=== PATIENT | female | born 1985 | race Caucasian/White ===

== ENCOUNTER → 2018-12-21 | Outpatient (REF) | payer BC ==
[2017-03-05 17:00] VITALS: BMI 31.9
[~2018-12-21] MED LIST: ACET-1718 PO; ANUHC30T PR; DOCU240C67 PO; ESCI20TA38 PO; IBUP800T37 PO; IMPLANON; KET10 PO; LOR5/325 PO
[2018-12-21 15:04] LABS: PLATELET COUNT, AUTOMATED 205 K/uL (150-450)
== END ==
PROVIDERS: ATTEND Nurse Practitioner Family
DX: R50.9 Fever, unspecified (principal); R06.02 Shortness of breath
CPT/HCPCS: 82040; 82247; 82310; 82374; 82435; 82565; 82947; 84075; 84132; 84155; 84295; 84450; 84460; 84520; 85025; 85651; 86140